=== PATIENT | female | born 1965 | race Caucasian/White ===

== ENCOUNTER 2021-02-01 16:39 | Emergency (ER) | payer MEDICARE ==
[~2021-02-01] VITALS: Ht 165.1 cm; Wt 90.7 kg
[2021-02-01] MEDS ORDERED: MORPHINE SULFAT30 M4 PO (16:53)
[2021-02-01] MEDS ORDERED: VITAMIN D310 MC2 PO (16:54)
[2021-02-01] MEDS ORDERED: TIZANIDINE HCL4 M1 PO (16:54)
[2021-02-01] MEDS ORDERED: DESYREL150 MG PO (16:55)
[2021-02-01] MEDS ORDERED: ZOLPIDEM TARTRA10 MG PO (16:55)
[2021-02-01] MEDS ORDERED: VALTREX 500 MG500 MG PO (16:57)
[2021-02-01] MEDS ORDERED: SUMATRIPTAN PO (16:57)
[2021-02-01] MEDS ORDERED: MELOXICAM15 MG PO (16:58)
[2021-02-01] MEDS ORDERED: DIPHENHIST50 MG PO (16:59)
[2021-02-01] MEDS ORDERED: LEVOTHYROXINE88 MC1 PO (16:59)
[2021-02-01 17:43] LABS: CALCIUM 8.9 mg/dL (8.5-10.1); CREATININE 0.9 mg/dL (0.6-1.3); POTASSIUM 3.9 mmol/L (3.5-5.1)
[2021-02-01] MEDS ORDERED: TESSALON PERLE100 MG PO (18:11)
[2021-02-01] MEDS ORDERED: ZOFRAN ODT4 MG DISSOLVE (18:11)
[2021-02-01 18:47] VITALS: BP 103/51
--- NOTE | 2021-02-02 11:42 | EKG ---
[place] [address] ELECTROCARDIOGRAM REPORT Name: JHOANA ROSE Room: [facility]#: [id number] Admission: 02/01/21 Attend Phys: Discharge: 02/01/21 Date of : 67 Date of Service: 02/01/21 1650 Report #: [id number] THIS REPORT FOR: //name// [facility] ED Test Date: 2021-02-01 Test Time: 16:50:39 Pat Name: JHOANA ROSE Department: Room: Gender: F Expert Medical Writer: : 1965 Requested By: Aleksander Florian Order Number: [id number] MD: Luiz Mccabe Measurements Intervals [place] Rate: 93 P: 5 [place]: 126 QRS: 80 QRSD: 100 T: 33 QT: 353 QTc: 440 Interpretive Statements Sinus rhythm Low voltage, precordial leads No previous ECG available for comparison Electronically Signed On 02-02-2021 11:41:53 FIELD REPORTER by Luiz Mccabe [email or web address] <ELECTRONICALLY SIGNED> By: Luiz Mccabe MD, [facility] 02/02/21 1141 165 49 Luiz Mccabe MD, [facility] /EPI
== END 2021-02-01 18:47 | disposition home or self-care (01) ==
LOC: M.ERS 16:39
PROVIDERS: Emergency Medicine Emergency Medical Services
DX: U07.1 COVID-19 (principal); Z79.899 Other long term (current) drug therapy; Z88.2 Allergy status to sulfonamides; Z88.5 Allergy status to narcotic agent